=== PATIENT | female | born 1950 | race Caucasian/White ===

== ENCOUNTER → 2018-09-11 11:56 | Outpatient (CLI) | payer MEDICARE, SELFPAY ==
--- NOTE | 2018-09-11 12:05 | BI_ITS ---
MAMMOGRAPHY - BILATERAL SCREENING REASON FOR EXAM: Female, 68 years old. Routine annual screening examination. PERTINENT HISTORY: Non-contributory. TECHNIQUE: Digital bilateral breast brittany (3D mammographic acquisition) in the CC and MLO projections. 2-D mediolateral oblique (MLO) and craniocaudad (CC) views of both breasts were obtained. CAD: Full Field Digital Mammography with Computer Added Detection was performed. COMPARISON: Comparison is made with prior examination dated June 15, 2016. FINDINGS: Breast Composition: The breasts are heterogeneously dense, which may obscure small masses. There are no dominant masses or suspicious calcifications. No other significant abnormalities are identified. There has been no significant change since the prior study. BI/SCREENING MAMM (CAD), BILAT IMPRESSION: Stable bilateral screening mammogram. Yearly follow-up mammogram recommended. (A) ASSESSMENT CATEGORY: BIRADS Category 1: Negative. A letter regarding these results will be sent to the patient by the facility within 30 days. Approximately 10% of breast cancers are not detected by mammography. A normal mammogram should not delay biopsy of a clinically suspicious abnormality. [id number] Electronically Signed: Rahat Kimble MD at 13:00 EST Tel [phone], Service support ,
== END ==
PROVIDERS: Referring Provider Obstetrics & Gynecology; Visit Provider Obstetrics & Gynecology
DX: Z12.31 Encounter for screening mammogram for malignant neoplasm of breast (principal)
CPT/HCPCS: 77063; 77067

== ENCOUNTER → 2019-09-20 08:53 | Outpatient (CLI) | payer MEDICARE, SELFPAY ==
[2018-09-14 14:12] VITALS: BMI 24.8
--- NOTE | 2019-09-20 08:54 | BI_ITS ---
MAMMOGRAPHY - BILATERAL SCREENING REASON FOR EXAM: Female, 69 years old. Routine annual screening examination. PERTINENT HISTORY: Non-contributory. TECHNIQUE: Digital bilateral breast kacy (3D mammographic acquisition) in the CC and MLO projections. 2-D mediolateral oblique (MLO) and craniocaudad (CC) views of both breasts were obtained. CAD: Full Field Digital Mammography with Computer Added Detection was performed. COMPARISON: Comparison is made with prior study dated September 11, 2018. FINDINGS: Breast Composition: The breasts are heterogeneously dense, which may obscure small masses. There are no dominant masses or suspicious calcifications. No other significant abnormalities are identified. There has been no significant change since the prior study. BI/SCREEN MAMM (CAD) W/KACY BILAT IMPRESSION: Stable bilateral screening mammogram. Yearly follow-up mammogram recommended. (A) ASSESSMENT CATEGORY: BIRADS Category 1: Negative. A letter regarding these results will be sent to the patient by the facility within 30 days. Approximately 10% of breast cancers are not detected by mammography. A normal mammogram should not delay biopsy of a clinically suspicious abnormality. [id number] Electronically Signed: Rahat Kimble, at 9:53 EST , Service support ,
== END ==
PROVIDERS: Family Provider Family Medicine; PCP Family Medicine; Referring Provider Obstetrics & Gynecology; Visit Provider Obstetrics & Gynecology
DX: Z12.31 Encounter for screening mammogram for malignant neoplasm of breast (principal)
CPT/HCPCS: 77063; 77067

== ENCOUNTER → 2019-09-27 08:53 | Outpatient (CLI) | payer MEDICARE, SELFPAY ==
[2019-09-20 09:48] VITALS: BMI 24.8
--- NOTE | 2019-09-27 08:54 | BD_ITS ---
STUDY: DUAL ENERGY X-RAY ABSORPTIOMETRY / DXA REASON FOR EXAM: Female, 69 years old. Age of dania- 47. Pat is 136.2# and 63 and quot;. Past hx of using an HRT. Takes levothyroxin and HCTZ. Takes 600 mg of calcium and a multi-vit. Does a little to moderate exercising. TECHNIQUE: Bone Mineral Density (BMD) measurements of lumbar spine and bilateral hips were obtained. COMPARISON: None. FINDINGS: Lumbar Spine (L1-L4): g/cm2 (0.736) / T-score (-3.6) / Z-score (-1.9) Findings are suggestive of osteoporosis with a high fracture risk. Left Femur Total: g/cm2 (0.744) / T-score (-2.1) / Z-score (-0.6) Left Femoral Neck: g/cm2 (0.690) / T-score (-2.5) / Z-score (0.8) Right Femur Total: g/cm2 (0.806) / T-score (-1.6) / Z-score (-0.1) Right Femoral Neck: g/cm2 (0.763) / T-score (-2.0) / Z-score (-0.3) BD/Dexa Bone Density Study IMPRESSION: The patient is considered osteoporotic as outlined below according to World Reese Organization (WHO) criteria with a high fracture risk. Reference Information: The T-score is the number of standard deviations above or below the standard which is normal for young adults at their peak bone mineral density. The World Health Organization (WHO) interprets the T-scores as follows: Above -1 Normal bone density Between -1 and -2.5 Osteopenia Equal to / or below -2.5 Osteoporosis As a practical clinical guideline, osteopenia may be graded as follows: Mild -1 through -1.5 Moderate -1.6 through -2.0 Severe -2.1 through -2.4 The Z-score is the number of standard deviations above or below age-matched controls. A Z-score of less than -1.5 would be considered abnormal. References: 1. NIH Osteoporosis and Related Bone Diseases http://www.osteo.org 2. International Society for Clinical Densitometry http://www.iscd.org 3. National Osteoporosis Foundation http://www.nof.org Electronically Signed: Rahat Kimble, at 14:38 EST , Service support ,
== END ==
PROVIDERS: PCP Family Medicine; Referring Provider Obstetrics & Gynecology; Visit Provider Obstetrics & Gynecology
DX: E28.39 Other primary ovarian failure (principal); M81.0 Age-related osteoporosis without current pathological fracture; M85.80 Other specified disorders of bone density and structure, unspecified site
CPT/HCPCS: 77080

== ENCOUNTER → 2019-11-09 09:57 | Outpatient (CLI) | payer MEDICARE, SELFPAY ==
[2019-11-09 09:14] VITALS: BMI 24.8
[2019-11-09 11:18] LABS: PTHIN 40.6 pg/mL (18.4-80.1)
[2019-11-09 11:20] LABS: Calcium,Total 9.8 mg/dL (8.5-10.1)
[2019-11-09 11:23] LABS: Vitamin D,25 Hydroxy 39.3 ng/mL
== END ==
PROVIDERS: PCP Family Medicine; Referring Provider Internal Medicine Endocrinology, Diabetes & Metabolism; Visit Provider Internal Medicine Endocrinology, Diabetes & Metabolism
DX: M81.0 Age-related osteoporosis without current pathological fracture (principal); E55.9 Vitamin D deficiency, unspecified
CPT/HCPCS: 36415; 82306; 82310; 83970

== ENCOUNTER → 2019-12-28 13:52 | Outpatient (CLI) | payer MEDICARE, SELFPAY ==
[2019-11-09 09:14] VITALS: BMI 24.8
[2019-12-28 14:10] VITALS: BP 125/66; PULSE 58; RESP 16; TEMP 36.6; O2SAT 100; BMI 23.9
[2019-12-28] MEDS: DENOSUMAB 60 MG/ML ML SQ (14:15)
== END ==
PROVIDERS: PCP Family Medicine; Referring Provider Internal Medicine Endocrinology, Diabetes & Metabolism; Visit Provider Internal Medicine Endocrinology, Diabetes & Metabolism
DX: M81.0 Age-related osteoporosis without current pathological fracture (principal)
CPT/HCPCS: 96372; J0897

== ENCOUNTER → 2020-06-27 13:53 | Outpatient (CLI) | payer MEDICARE, SELFPAY ==
[2019-11-09 09:14] VITALS: BMI 24.8
[2019-12-28 14:10] VITALS: BMI 23.9
[2020-06-27 13:57] VITALS: BP 118/64; PULSE 53; RESP 18; TEMP 36.4; O2SAT 98
[2020-06-27 13:59] VITALS: BMI 24.0
[2020-06-27] MEDS: DENOSUMAB 60 MG/ML SQ (14:02)
== END ==
PROVIDERS: PCP Family Medicine; Referring Provider Internal Medicine Endocrinology, Diabetes & Metabolism; Visit Provider Internal Medicine Endocrinology, Diabetes & Metabolism
DX: M81.0 Age-related osteoporosis without current pathological fracture (principal)
CPT/HCPCS: 96372; J0897

== ENCOUNTER → 2020-12-09 14:52 | Outpatient (CLI) | payer MEDICARE, SELFPAY ==
[2020-06-27 13:59] VITALS: BMI 24.0
[2020-11-07 08:51] VITALS: BMI 25.0
--- NOTE | 2020-12-09 14:55 | BI_ITS ---
MAMMOGRAPHY - BILATERAL SCREENING 3-D TOMOSYNTHESIS REASON FOR EXAM: Female, 70 years old. Screening PERTINENT HISTORY: No significant family history. TECHNIQUE: 2-D mammograms and 3-D Tomosynthesis of the breast (s) were performed. CAD was performed. COMPARISON: 09/20/2019 FINDINGS: The breast composition is composed of scattered fibroglandular density. Scattered benign calcifications are seen. No dense spiculated masses or suspicious microcalcifications are identified. No architectural distortion is identified. There is no skin thickening or retraction. There has been no significant change since the prior study. BI/SCRN MAMM (CAD)W/KACY BILAT IMPRESSION: No mammographic signs of malignancy. Routine yearly mammograms recommended. ASSESSMENT CATEGORY: BIRADS Category 1: Negative. A letter regarding these results will be sent to the patient by the facility within 30 days. FOLLOW UP RECOMMENDATION: Yearly follow up mammogram recommended. (A) Approximately 10% of breast cancers are not detected by mammography. A normal mammogram should not delay biopsy of a clinically suspicious abnormality. Electronically Signed: Joe Macias MD at 8:35 EDT , Service support ,
== END ==
PROVIDERS: PCP Family Medicine; Referring Provider Obstetrics & Gynecology; Visit Provider Obstetrics & Gynecology
DX: Z12.31 Encounter for screening mammogram for malignant neoplasm of breast (principal)
CPT/HCPCS: 77063; 77067

== ENCOUNTER → 2020-12-26 13:58 | Outpatient (CLI) | payer MEDICARE, SELFPAY ==
[2019-12-28 14:10] VITALS: BMI 23.9
[2020-11-07 08:51] VITALS: BMI 25.0
[2020-12-26 14:07] VITALS: BP 124/62; PULSE 63; RESP 16; TEMP 36.4; O2SAT 100; BMI 23.9
[2020-12-26] MEDS: DENOSUMAB 60 MG/ML SC (14:12)
== END ==
PROVIDERS: PCP Family Medicine; Referring Provider Internal Medicine Endocrinology, Diabetes & Metabolism; Visit Provider Internal Medicine Endocrinology, Diabetes & Metabolism
DX: M81.0 Age-related osteoporosis without current pathological fracture (principal)
CPT/HCPCS: 96372; J0897

== ENCOUNTER → 2021-06-26 13:57 | Outpatient (CLI) | payer MEDICARE, SELFPAY ==
[2020-11-07 08:51] VITALS: BMI 25.0
[2021-06-26 14:04] VITALS: BP 124/57; PULSE 65; RESP 16; O2SAT 100
[2021-06-26] MEDS: DENOSUMAB 60 MG/ML SC (14:06)
== END ==
PROVIDERS: PCP Family Medicine; Referring Provider Internal Medicine Endocrinology, Diabetes & Metabolism; Visit Provider Internal Medicine Endocrinology, Diabetes & Metabolism
DX: M81.0 Age-related osteoporosis without current pathological fracture (principal)
CPT/HCPCS: 96372; J0897

== ENCOUNTER 2022-01-01 09:23 | Outpatient (CLI) | payer MEDICARE, SELFPAY ==
[2022-01-01 09:42] VITALS: BP 131/70; PULSE 53; RESP 16; TEMP 36.1; O2SAT 100
[2022-01-01] MEDS: DENOSUMAB 60 MG/ML SC (09:50)
== END 2022-01-01 23:59 | disposition home or self-care (01) ==
PROVIDERS: PCP Family Medicine; Referring Provider Internal Medicine Endocrinology, Diabetes & Metabolism; Visit Provider Internal Medicine Endocrinology, Diabetes & Metabolism
DX: M81.0 Age-related osteoporosis without current pathological fracture (principal)
CPT/HCPCS: 96372; J0897

== ENCOUNTER → 2022-01-06 | Outpatient (CLI) | payer MEDICARE, SELFPAY ==
[2022-01-06 12:48] LABS: AST(SGOT) 13 U/L (15-37); Alanine Aminotransfer ALT/SGPT 25 U/L (13-56); Albumin, Serum 3.8 g/dL (3.2-5.0); Alkaline Phosphatase 51 U/L (45-117); Anion Gap 6 (5-15); BUN 21 mg/dL (7-18); BUN/Creat Ratio 21.6 RATIO (10-20); Calcium,Total 8.5 mg/dL (8.5-10.1); Chloride 99 mmol/L (98-107); Creatinine, Serum 0.97 mg/dL (0.55-1.02); EST Glomerular Filtration Rate 60 mL/min (>60); Est Glom Filt Rate - Afr Amer 72 mL/min (>60); Globulin 3.7 g/dL (2.2-4.2); Glucose 82 mg/dL (74-106); Potassium 2.9 mmol/L (3.5-5.1); Protein, Total 7.5 g/dL (6.4-8.2); Sodium Level 135 mmol/L (136-145)
[2022-01-06 12:54] LABS: Vitamin D,25 Hydroxy 46.7 ng/mL
== END | disposition home or self-care (01) ==
LOC: BIMLAB 09:45
PROVIDERS: PCP Family Medicine; Referring Provider Nurse Practitioner Family; Visit Provider Nurse Practitioner Family
DX: M81.0 Age-related osteoporosis without current pathological fracture (principal); E55.9 Vitamin D deficiency, unspecified
CPT/HCPCS: 36415; 80053; 82306

== ENCOUNTER → 2022-01-15 | Outpatient (CLI) | payer MEDICARE, SELFPAY ==
--- NOTE | 2022-01-15 08:56 | BI_ITS ---
MAMMOGRAPHY - BILATERAL SCREENING REASON FOR EXAM: Female, 71 years old. Routine annual screening examination. PERTINENT HISTORY: Non-contributory. TECHNIQUE: Digital bilateral breast kacy (3D mammographic acquisition) in the CC and MLO projections. 2-D mediolateral oblique (MLO) and craniocaudad (CC) views of both breasts were obtained. CAD: Full Field Digital Mammography with Computer Added Detection was performed. COMPARISON: Comparison is made with prior study dated 12/09/2020 and 09/20/2019. FINDINGS: Breast Composition: There are scattered areas of fibroglandular density. There are no dominant masses or suspicious calcifications. No other significant abnormalities are identified. There has been no significant change since the prior study. BI/SCRN MAMM (CAD)W/KACY BILAT IMPRESSION: Stable bilateral screening mammogram. Yearly follow-up mammogram recommended. (A) ASSESSMENT CATEGORY: BIRADS Category 1: Negative. A letter regarding these results will be sent to the patient by the facility within 30 days. Approximately 10% of breast cancers are not detected by mammography. A normal mammogram should not delay biopsy of a clinically suspicious abnormality. [id number] Electronically Signed: Rahat Kimble MD at 9:51 EDT ,
== END | disposition home or self-care (01) ==
LOC: OPBI 08:55
PROVIDERS: PCP Family Medicine; Visit Provider Obstetrics & Gynecology
DX: Z12.31 Encounter for screening mammogram for malignant neoplasm of breast (principal)
CPT/HCPCS: 77063; 77067

== ENCOUNTER → 2022-07-02 | Outpatient (CLI) | payer MEDICARE, SELFPAY ==
[2022-07-02 09:40] VITALS: BP 140/66; PULSE 63; RESP 14; TEMP 36.3; O2SAT 97; BMI 23.6
[2022-07-02] MEDS: DENOSUMAB 60 MG/ML SC (09:44)
== END | disposition home or self-care (01) ==
LOC: MEDOUTP 09:32
PROVIDERS: PCP Family Medicine; Referring Provider Internal Medicine Endocrinology, Diabetes & Metabolism; Visit Provider Internal Medicine Endocrinology, Diabetes & Metabolism
DX: M81.0 Age-related osteoporosis without current pathological fracture (principal)
CPT/HCPCS: 96372; J0897

== ENCOUNTER 2022-12-31 08:51 | Outpatient (CLI) | payer MEDICARE, SELFPAY ==
[2022-12-31 09:02] VITALS: BP 130/77; PULSE 55; RESP 16; TEMP 36.2; O2SAT 99; BMI 23.0
[2022-12-31] MEDS: DENOSUMAB 60 MG/ML SC (09:11)
== END 2022-12-31 08:52 | disposition home or self-care (01) ==
PROVIDERS: PCP Family Medicine; Referring Provider Internal Medicine Endocrinology, Diabetes & Metabolism; Visit Provider Internal Medicine Endocrinology, Diabetes & Metabolism
DX: M81.0 Age-related osteoporosis without current pathological fracture (principal)
CPT/HCPCS: 96372; J0897

== ENCOUNTER → 2023-01-19 | Outpatient (CLI) | payer MEDICARE, SELFPAY ==
--- NOTE | 2023-01-19 14:08 | BI_ITS ---
MAMMOGRAPHY - BILATERAL SCREENING REASON FOR EXAM: Female, 72 years old. Routine annual screening examination. PERTINENT HISTORY: Non-contributory. TECHNIQUE: Digital bilateral breast kacy (3D mammographic acquisition) in the CC and MLO projections. 2-D mediolateral oblique (MLO) and craniocaudad (CC) views of both breasts were obtained. CAD: Full Field Digital Mammography with Computer Added Detection was performed. COMPARISON: Comparison is made with prior examination of January 15, 2022 and December 09, 2020. FINDINGS: Breast Composition: There are scattered areas of fibroglandular density. There are no dominant masses or suspicious calcifications. No other significant abnormalities are identified. There has been no significant change since the prior study. BI/SCRN MAMM (CAD)W/KACY BILAT IMPRESSION: Stable bilateral screening mammogram. Yearly follow-up mammogram recommended. (A) ASSESSMENT CATEGORY: BIRADS Category 1: Negative. A letter regarding these results will be sent to the patient by the facility within 30 days. Approximately 10% of breast cancers are not detected by mammography. A normal mammogram should not delay biopsy of a clinically suspicious abnormality. [id number] Electronically Signed: Rahat Kimble MD at 14:48 EDT ,
== END | disposition home or self-care (01) ==
LOC: OPBI 14:06
PROVIDERS: PCP Family Medicine; Referring Provider Obstetrics & Gynecology; Visit Provider Obstetrics & Gynecology
DX: Z12.31 Encounter for screening mammogram for malignant neoplasm of breast (principal)
CPT/HCPCS: 77063; 77067

== ENCOUNTER → 2023-03-03 | Outpatient (CLI) | payer MEDICARE, SELFPAY ==
--- NOTE | 2023-03-03 12:24 | BD_ITS ---
STUDY: DUAL ENERGY X-RAY ABSORPTIOMETRY / DXA REASON FOR EXAM: Female, 73 years old. Osteoporosis on Prolia TECHNIQUE: Bone Mineral Density (BMD) measurements of lumbar spine and bilateral hips were obtained. COMPARISON: Comparison is made with prior study dated September 27, 2019. FINDINGS: Lumbar Spine (L1-L4): g/cm2 (0.742) / T-score (-2.8) / Z-score (-0.5) Findings are suggestive of osteoporosis with a high fracture risk. Left Femur Total: g/cm2 (0.723) / T-score (-1.8) / Z-score (-0.1) Left Femoral Neck: g/cm2 (0.566) / T-score (-2.6) / Z-score (-0.5) Right Femur Total: g/cm2 (0.793) / T-score (-1.2) / Z-score (0.5) Right Femoral Neck: g/cm2 (0.636) / T-score (-1.9) / Z-score (0.1) The T-Scores on the most recent prior examination were: Lumbar Spine (L1-L4): There has been improvement of bone density since the previous examination. Left Femur Total: which represents an improvement of 5.6%. Right Femur Total: which represents an improvement of 6.4%. BD/Dexa Bone Density Study IMPRESSION: The patient is considered osteoporotic as outlined below according to World Reese Organization (WHO) criteria with a high fracture risk. There has been improvement of bone density since the previous examination. Reference Information: The T-score is the number of standard deviations above or below the standard which is normal for young adults at their peak bone mineral density. The World Health Organization (WHO) interprets the T-scores as follows: Above -1 Normal bone density Between -1 and -2.5 Osteopenia Equal to / or below -2.5 Osteoporosis As a practical clinical guideline, osteopenia may be graded as follows: Mild -1 through -1.5 Moderate -1.6 through -2.0 Severe -2.1 through -2.4 The Z-score is the number of standard deviations above or below age-matched controls. A Z-score of less than -1.5 would be considered abnormal. References: 1. NIH Osteoporosis and Related Bone Diseases www osteo.org 2. International Society for Clinical Densitometry www iscd.org 3. National Osteoporosis Foundation www nof.org Electronically Signed: Rahat Kimble MD at 13:03 EDT ,
== END | disposition home or self-care (01) ==
PROVIDERS: PCP Family Medicine; Referring Provider Registered Nurse; Visit Provider Registered Nurse
DX: Z01.419 Encounter for gynecological examination (general) (routine) without abnormal findings (principal); M81.0 Age-related osteoporosis without current pathological fracture
CPT/HCPCS: 77080

== ENCOUNTER → 2024-01-27 | Outpatient (CLI) | payer MEDICARE, SELFPAY ==
--- NOTE | 2024-01-27 12:17 | BI_ITS ---
MAMMOGRAPHY - BILATERAL SCREENING 3-D TOMOSYNTHESIS REASON FOR EXAM: Female, 73 years old. breast cancer screening PERTINENT HISTORY: No significant family history. TECHNIQUE: 2-D mammograms and 3-D Tomosynthesis of the breast (s) were performed. CAD was performed. COMPARISON: 01/19/2023 FINDINGS: The breast composition is heterogeneously dense that can obscure small breast masses. Scattered benign calcifications are seen. No dense spiculated masses or suspicious microcalcifications are identified. No architectural distortion is identified. There is no skin thickening or retraction. There has been no significant change since the prior study. BI/SCRN MAMM (CAD)W/KACY BILAT IMPRESSION: No mammographic signs of malignancy. Routine yearly mammograms recommended. ASSESSMENT CATEGORY: BIRADS Category 1: Negative. A letter regarding these results will be sent to the patient by the facility within 30 days. FOLLOW UP RECOMMENDATION: Yearly follow up mammogram recommended. (A) Approximately 10% of breast cancers are not detected by mammography. A normal mammogram should not delay biopsy of a clinically suspicious abnormality. Electronically Signed: Kp Shine MD at 18:21 EDT ,
== END | disposition home or self-care (01) ==
LOC: OPBI 12:15
PROVIDERS: PCP Family Medicine; Referring Provider Registered Nurse; Visit Provider Registered Nurse
DX: Z12.31 Encounter for screening mammogram for malignant neoplasm of breast (principal)
CPT/HCPCS: 77063; 77067

== ENCOUNTER → 2025-01-29 | Outpatient (CLI) | payer MEDICARE, SELFPAY ==
--- NOTE | 2025-01-29 13:08 | BI_ITS ---
EXAM: SCRN MAMM (CAD)W/KACY BILAT DATE: 01/29/2025 CLINICAL HISTORY: F, Age 74 y/o , BREAST CANCER SCREENING No family history. BREAST CANCER RISK ASSESSMENT: Not assessed. TECHNIQUE: Bilateral screening digital breast tomosynthesis with 2D and 3D images. Computer aided detection. COMPARISON: Prior exam(s) dated January 27, 2024.. FINDINGS: TISSUE DENSITY: The breast tissue is heterogenously dense, which may obscure small masses. Bilateral Breast Mammographic Findings: No significant masses, calcifications or other abnormalities are identified. No suspicious masses, areas of developing architectural distortion, or suspicious calcifications. There has been no significant interval change. BI/SCRN MAMM (CAD)W/KACY BILAT IMPRESSION: OVERALL FINAL ASSESSMENT: BIRADS 1 NEGATIVE RECOMMENDATION: Routine annual follow-up in 1 Year A letter with findings and recommendations will be mailed to the patient. Reading Location: [place] [address]
== END | disposition home or self-care (01) ==
LOC: OPBI 13:06
PROVIDERS: PCP Family Medicine; Referring Provider Nurse Practitioner Family; Visit Provider Nurse Practitioner Family
DX: Z12.31 Encounter for screening mammogram for malignant neoplasm of breast (principal)
CPT/HCPCS: 77063; 77067

== ENCOUNTER 2025-05-22 15:51 | Outpatient (RCR) | payer MEDICARE, SELFPAY ==
--- NOTE | 2025-05-22 17:33 | HP.PTEVAL_ITS ---
Patient's Visit Information Visit Information Visit Information: BETZY PENA is a 75 year old F referred to Physical Therapy by [facility] with a diagnosis of Unspecified urinary incontinence R32. Date of Evaluation: 05/22/25 Physical Therapist: Brenna Kelly Visit Plan Frequency: 1x/Week Duration: 3 Months Plan: Betzy would benefit from skilled PT intervention to address her urinary urgency, nocturia and left sciatica symptoms. She has moderate pelvic floor tightness along with some spinal dysfunction that may be contributing to her symptoms which we will address. Next visit continue pelvic floor releases bilaterally and superiorly at urethral sphincter. Continue work on left sciatica (gentle with manual therapy due to osteoporosis). Her biggest problems are urgency with standing, nocturia. Started her on deep breathing today (she was breathing more into her chest and less her belly). Subjective Subjective: She gets up 2-4 x night to urinate in the last 6 months. She has always struggled with urgency problems for years. She has also had post void dribbling but more recently that has resolved. She is also dealing with urgency to urinate when she stands up. Doesn't always happen. She doesn't actually leak though. Turning the water on in kitchen, that is a trigger. She is triggered by a salazar in the door. She finds the incontinence is worse if she pushes the envelope. In the evening, she can urinate once every hour. Left sciatica symptoms all the way down the leg. With standing, not with sitting Hurts with shopping at [employer]. Hurts with standing in the kitchen to cook. Doesn't hurt with walking for exercise. She has osteoporosis, history of compression fractures, spinal stenosis. Pain can average 1-2/10 to 8/10 high. No stress incontinence. She drinks 1-2 small Mountain Dew a day. She drinks a lot of water every day. She volunteers at the [employer]. She goes to Exercise class in the morning with her friends 4 x week. [employer] exercise class once a week. 2 children vaginal deliveries. She is a retired speech therapist in the schools. Her goal is to improve her control or lessen her leaking. Pain Low back pain: Pain Intensity (Out of 10): 2 Objective Objective: She gives consent for pelvic floor exam Pelvic floor muscle exam No evidence of cystocele or rectocele Mild, moderate pelvic floor tightness bilaterally LAYCOCK /8//2 difficulty relaxing between contractions Left pelvic upslip Left rotation L3-L5 Moderate left piriformis tightness and tenderness Deep breathing more into chest quickly and forcefully and not into her belly Goals Goal 1:: Betzy will only have to get up at most once a night to urinate to allow for more restful sleep. 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 Goal Time Frame: 4-6 Weeks Goal 3:: Betzy will be on a more normal voiding schedule of urinating once every 2-3 hours in the evenings. Goal Time Frame: 6-8 Weeks Goal 4:: Betzy's sciatic symptoms will be gone allowing her to stand for up to 1 hour at a time to do cooking activities in her kitchen. Goal Time Frame: 6-8 Weeks Rehabilitation Potential Physical Therapy Diagnosis: Urgency of urination R39.15, Nocturia R35.1, Left sciatica M54.32 Rehabilitation Potential: Good Anticipated Interventions Patient/Client Instruction: Educate patient on: Condition and Plan of Care For the Purpose of:: To decrease pain, To improve muscle performance and motor function, To improve health and function and To improve self management Therapeutic Exercise to Include: Strength training, Relaxation training, Dynamic Lumbar Stabilization and [place]ona Exercises For the Purpose of:: To improve muscle performance and motor function, To improve health and function and To improve self management Manual Therapy Techniques to Include: Trigger point massage, Mobilization and Soft tissue mobilization For the Purpose of:: To decrease pain, To improve muscle performance and motor function, To improve health and function and To improve self management Ultrasound (thermal/non thermal): Yes For the Purpose of:: To decrease pain, To improve muscle performance and motor function, To improve health and function and To improve self management Text: Thank you for the opportunity to evaluate your patient. For Medicare and Medicare HMO plans, please review the plan of care and approve it. It will need to be FAXED BACK to us at [phone] for Medicare purposes. For Medicare only, by signing this I certify the plan of care. Please let me know if there are questions or concerns regarding this plan of care. Physician Signature: _Date:
== END 2025-05-22 19:00 | disposition home or self-care (01) ==
LOC: PT 15:51
PROVIDERS: PCP Family Medicine; Referring Provider Nurse Practitioner Family; Visit Provider Nurse Practitioner Family
DX: R32 Unspecified urinary incontinence (principal)
CPT/HCPCS: 97140; 97162; 97530